=== PATIENT | female | born 1990 | race Caucasian/White ===

== ENCOUNTER → 2021-03-02 | Day surgery (SDC) | payer OTHER ==
[~2021-03-02] VITALS: Ht 162.6 cm; Wt 77.1 kg
[~2021-03-02] MED LIST: IBUPROFEN800 M1 PO
[2021-03-02 09:47] LABS: HCG (URINE) SCREEN NEGATIVE (NEGATIVE)
== END | disposition home or self-care (01) ==
LOC: FAS 09:21
PROVIDERS: Obstetrics & Gynecology
DX: N93.9 Abnormal uterine and vaginal bleeding, unspecified (principal); D64.9 Anemia, unspecified; N83.202 Unspecified ovarian cyst, left side; Z98.51 Tubal ligation status; Z86.19 Personal history of other infectious and parasitic diseases; Z87.891 Personal history of nicotine dependence
CPT/HCPCS: 84703; J1100; J1170; J1885; J2250; J2405; J2704; J3010; J7120

== ENCOUNTER 2021-06-20 14:08 | Emergency (ER) | payer OTHER ==
[2021-06-20 16:04] LABS: BASOPHIL 0.5 % (0-2); EOSINOPHIL 1.7 % (0-5); HCT 42.8 % (37.0-47.0); LYMPHOCYTE 27.8 % (15-48); MCH 28.2 pg (25.0-31.0); MCHC 32.7 g/dL (32.0-36.0); MCV 86.1 fL (78.0-100.0); MONOCYTE 4.8 % (0-12); MPV 13.9 fL (6.0-9.5); NRBC 0; PLT 178 K/uL (150-400); RBC 4.97 M/uL (4.20-5.40); RDW 15.3 % (11.5-14.0); WBC 8.2 K/uL (4.0-10.5)
[2021-06-20 16:26] LABS: BUN/CREAT RATIO (CALC) 11.6 RATIO; CREATININE 0.69 mg/dL (0.51-0.95); POTASSIUM 3.6 mmol/L (3.5-5.1)
== END 2021-06-20 18:49 | disposition home or self-care (01) ==
LOC: FER 14:08
PROVIDERS: Nurse Practitioner Family
DX: R00.2 Palpitations (principal); T43.615A Adverse effect of caffeine, initial encounter
CPT/HCPCS: 36415; 80048; 84443; 85025; 93005; J7030